=== PATIENT | female | born 1945 | race Caucasian/White ===

== ENCOUNTER 2017-12-23 15:50 | Inpatient (IN) | payer MEDICARE ==
[2017-12-23] MEDS ORDERED: NITROGLYCERIN SL TABS 0.4 MG TAB SUBLINGUAL PRN (16:15)
[2017-12-23] MEDS ORDERED: HEPARIN SODIUM,PORCINE 5,000 UNIT/ML 1 ML VIAL IV ONE (16:15)
[2017-12-23] MEDS ORDERED: ASPIRIN 81 MG PO STA (16:15)
--- NOTE | 2017-12-23 16:15 | ED ---
General Adult HPI - General Chief complaint: Chest Pain Stated complaint: Chest pain Time Seen by Provider: 12/23/17 15:54 Source: patient, EMS, RN notes reviewed, old records reviewed (Reviewed records from [facility] including x-ray report, ER report, EKGs and laboratory data.) Mode of arrival: EMS Limitations: no limitations - History of Present Illness Initial comments: Patient is a pleasant 72-year-old female presenting to the emergency Department with chest discomfort. Patient has been having symptoms for close to a month. Symptoms are exertional. Symptoms improved with rest and are mild at this time. Discomfort was severe today while walking to [facility] for a mammogram. Patient has minimal associated dyspnea. No nausea. Patient does have associated sweating. No history of similar symptoms previously. Case was discussed with transferring physician prior to transfer. There is questionable EKG changes in lead aVF and 3. Troponin was negative. Patient denies any calf pain or leg swelling. Review of Systems ROS Statement: Those systems with pertinent positive or pertinent negative responses have been documented in the HPI. ROS Other: All systems not noted in ROS Statement are negative. Constitutional: Denies: fever Eyes: Denies: eye pain ENT: Denies: ear pain Respiratory: Denies: cough Cardiovascular: Reports: chest pain Endocrine: Denies: fatigue Gastrointestinal: Denies: abdominal pain Genitourinary: Denies: dysuria Musculoskeletal: Denies: back pain Skin: Denies: rash Neurological: Denies: weakness Past Medical History Past Medical History: Diabetes Mellitus, Hyperlipidemia, Hypertension, Rheumatoid Arthritis (RA) Past Surgical History: Hysterectomy Additional Past Surgical History / Comment(s): knee replacement Past Psychological History: No Psychological Hx Reported Smoking Status: Never smoker Past Alcohol Use History: Rare Past Drug Use History: None Reported General Exam Limitations: no limitations General appearance: alert, in no apparent distress Head exam: Present: atraumatic, normocephalic Eye exam: Present: normal appearance, PERRL ENT exam: Present: normal oropharynx Neck exam: Present: normal inspection Respiratory exam: Present: normal lung sounds bilaterally. Absent: chest wall tenderness Cardiovascular Exam: Present: regular rate, normal rhythm Expanded Peripheral pulses: 2+: Radial (R), Radial (L), Posterior Tibialis (R), Posterior Tibialis (L) GI/Abdominal exam: Present: soft. Absent: tenderness Extremities exam: Present: normal inspection. Absent: pedal edema, calf tenderness Neurological exam: Present: alert Psychiatric exam: Present: normal affect, normal mood Skin exam: Present: normal color Course Vital Signs 12/23/17 15:58 Temperature 97.8 F Pulse Rate 73 Respiratory 16 Rate Blood Pressure 162/74 O2 Sat by Pulse 97 Oximetry - Reevaluation(s) Reevaluation #1: 12/23/17 16:13 Case was discussed with Dr. villa, who will admit for Dr. Hogan. EKG Findings - EKG Comments: EKG Findings:: Normal sinus rhythm 78. OH 134. QRS 112. QT 408. QTC 465. Left axis. Incomplete right bundle-branch block. LVH criteria. No acute ST change. Disposition Clinical Impression: Unstable angina pectoris Disposition: ADMITTED IP TO THIS HOSP Is patient prescribed a controlled substance at d/c from ED?: No Referrals: Kassie Hogan MD [Primary Care Provider] - 1-2 days Decision Time: 16:14
[2017-12-23] MEDS: HEPARIN SOD,PORK IN 0.45% NACL 25,000 UNIT in 0.45% NACL 1 500ML.BAG IV SCH (17:12)
[2017-12-23 17:18] LABS: Creatine Kinase MB 1.9 ng/mL (0.0-2.4)
[2017-12-23 17:21] LABS: Troponin I 0.035 ng/mL (0.000-0.034)
[2017-12-23] MEDS: NITROGLYCERIN OINT 1 INCH/GM PACKET TOPICAL SCH ×2 (19:30→23:15)
[2017-12-23 21:03] LABS: Glucose,Whole Blood 152 mg/dL (75-99)
[2017-12-23 22:58] LABS: Creatine Kinase MB 2.2 ng/mL (0.0-2.4); Troponin I 0.03 ng/mL (0.000-0.034)
[2017-12-23] MEDS: HEPARIN SODIUM,PORCINE 5,000 UNIT/ML 1 ML VIAL IV PRN (23:20)
[2017-12-24] MEDS: NITROGLYCERIN OINT 1 INCH/GM PACKET TOPICAL SCH ×4 (05:13→22:47)
[2017-12-24 06:08] LABS: Glucose,Whole Blood 118 mg/dL (75-99)
[2017-12-24 06:47] LABS: Mean Platelet Volume 7.4; Platelet Count 197 k/uL (150-450)
[2017-12-24 07:17] LABS: Cholesterol 170 mg/dL (<200); HDL Cholesterol 79 mg/dL (40-60); LDL Cholesterol,Calculated 75 mg/dL (0-99); Triglycerides 78 mg/dL (<150)
[2017-12-24] MEDS: ASPIRIN 325 MG TAB PO SCH ×2 (09:07→10:47)
--- NOTE | 2017-12-24 09:07 | P.CRDCN ---
History of Present Illness Consult date: 12/24/17 Requesting physician: Marck Delcid Consult reason: chest pain Chief complaint: Chest pain History of present illness: This is a pleasant 72-year-old female with history of hypertension, diabetes, hyperlipidemia, nonsmoker, who presents to the hospital with symptoms of chest discomfort. According to the patient she states she's been getting symptoms off and on for approximately one month. She describes as symptoms as a pressure and heaviness in her chest with associated sharp discomfort as well, she does get associated shortness of breath with diaphoresis. These usually occur with exertion and subside with rest. Yesterday the patient was scheduled to have her routine mammogram [facility], just walking into the hospital she developed moderate to severe chest discomfort. Patient was seen in the emergency room at [facility], and subsequently transferred here. Laboratory data at [facility], white blood cell count 4.9, hemoglobin 12.2, platelet count 203. Sodium 140, potassium 4.0, BUN 26, creatinine 0.7. Magnesium 1.4 alk phos AST ALT normal troponin 0.03. Chest x- ray performed there revealed stable findings without evidence of acute infiltrate or vascular compensation. EKG performed at [facility] showed a normal sinus rhythm with nonspecific ST-T wave changes noted in the inferior leads, incomplete right bundle branch block pattern. EKG performed on arrival here showed a normal sinus rhythm with ST-T wave changes in the inferior leads and incomplete right bundle branch block pattern. Laboratory reviewed here, Troponins 0.035 0.030. Cholesterol 170, triglycerides 78, LDL 75 , HDL 79. Blood pressure 104/60 with a heart rate in the 80s, afebrile. At the time of my examination this morning, patient is currently chest pain-free. Past Medical History Past Medical History: Diabetes Mellitus, Hyperlipidemia, Hypertension, Rheumatoid Arthritis (RA) History of Any Multi-Drug Resistant Organisms: None Reported Past Surgical History: Hysterectomy Additional Past Surgical History / Comment(s): knee replacement Past Anesthesia/Blood Transfusion Reactions: No Reported Reaction Smoking Status: Former smoker - Past Family History Mother Family Medical History: Diabetes Mellitus Brother(s) Family Medical History: Diabetes Mellitus Additional Family Medical History / Comment(s): atrial tachycardia Sister(s) Additional Family Medical History / Comment(s): ventricular tachycardia Medications and Allergies Home Medications Medication Instructions Recorded Confirmed Type Aspirin EC [Ecotrin Low Dose] 81 mg PO HS 12/23/17 12/23/17 History Cholecalciferol [Vitamin D3] 1,000 unit PO DAILY 12/23/17 12/23/17 History Etanercept [Enbrel] 50 mg SQ CARMONA 12/23/17 12/23/17 History Leflunomide [Arava] 20 mg PO DAILY 12/23/17 12/23/17 History Lisinopril [Zestril] 10 mg PO DAILY 12/23/17 12/23/17 History Simvastatin [Zocor] 20 mg PO HS 12/23/17 12/23/17 History metFORMIN HCL 1,000 mg PO BID 12/23/17 12/23/17 History Allergies Allergy/AdvReac Type Severity Reaction Status Date / Time Sulfa (Sulfonamide Allergy Rash/Hives Verified 12/23/17 16:26 Antibiotics) Physical Exam Vitals: Vital Signs Temp Pulse Pulse Resp BP BP Pulse Ox 12/24/17 04:00 97.8 F 82 16 104/57 95 12/24/17 00:00 98.5 F 83 17 89/52 96 12/23/17 19:27 88 18 139/71 96 12/23/17 16:58 98.1 F 82 18 149/73 93 L 12/23/17 15:58 97.8 F 73 16 162/74 97 Intake and Output 12/23/17 12/24/17 12/24/17 22:59 06:59 14:59 Intake Total 582.631 0 Balance 582.631 0 Intake: IV 460 0.9 200 Heparin Sod,Pork in 0.45% 260 NaCl 25,000 unit In 0.45 % NaCl 1 500ml.bag @ 8.9 UNITS/KG/HR 19.94 mls/hr IV .Q24H BARNEY Rx#: [id number] Intake, IV Titration 122.631 Amount Heparin Sod,Pork in 0.45% 122.631 NaCl 25,000 unit In 0.45 % NaCl 1 500ml.bag @ 8.9 UNITS/KG/HR 19.94 mls/hr IV .Q24H BARNEY Rx#: [id number] Oral 0 Other: Voiding Method Toilet # Voids 1 1 Weight 112.037 kg 111.9 kg PHYSICAL EXAMINATION: GENERAL: Pleasant 72-year-old female in no acute distress at the time of my examination HEENT: Head is atraumatic, normocephalic. Pupils equal, round. Sclera anicteric. Conjunctiva are clear. Mucous membranes of the mouth are moist. Neck is supple. There is no elevated jugular venous pressure. No carotid bruit is heard. HEART EXAMINATION: Heart S1, S2 normal. No murmur or gallop heard. CHEST EXAMINATION: Lungs are clear to auscultation and precussion. No chest wall tenderness is noted on palpation or with deep breathing. ABDOMEN: Soft, obese, nontender. Bowel sounds are heard. No organomegaly noted. EXTREMITIES: 2+ peripheral pulses with trace evidence of peripheral edema and no calf tenderness noted. NEUROLOGIC patient is awake, alert and oriented X3. . Results 12/24/17 06:27 Cardiac Enzymes 12/23/17 12/23/17 Range/Units 16:09 22:20 CK-MB (CK-2) 1.9 2.2 (0.0-2.4) ng/mL Troponin I 0.035 H* 0.030 (0.000-0.034) ng/mL Coagulation 12/23/17 12/23/17 12/24/17 Range/Units 16:09 22:20 06:27 APTT 18.9 L 30.4 H 52.2 H (22.0-30.0) sec Lipids 12/24/17 Range/Units 06:27 Triglycerides 78 (<150) mg/dL Cholesterol 170 (<200) mg/dL HDL Cholesterol 79 H (40-60) mg/dL CBC 12/24/17 Range/Units 06:27 Plt Count 197 (150-450) k/uL Current Medications Generic Name Dose Route Start Last Admin Trade Name Freq PRN Reason Stop Dose Admin Aspirin 325 mg 12/24/17 09:00 Aspirin PO DAILY BARNEY Heparin Sodium (Porcine) 0 unit 12/23/17 16:15 12/23/17 23:20 Heparin IV 4,000 unit Q6HR PRN Administration Low PTT Protocol Heparin Sodium/Sodium Chloride 500 mls @ 19.94 mls/hr 12/23/17 16:15 23:21 25,000 unit/ Sodium Chloride IV 11.9 units/kg/hr .Q24H BARNEY 26.66 mls/hr Titration Protocol 8.9 UNITS/KG/HR Nitroglycerin 1 inch 12/23/17 18:00 12/24/17 05:13 Nitro-Bid Oint TOPICAL Not Given Q6HR [facility] Nitroglycerin 0.4 mg 12/23/17 16:15 Nitrostat SUBLINGUAL Q5M PRN Chest Pain Sodium Chloride 10 ml 12/23/17 21:00 12/23/17 22:01 Saline Flush IV Not Given BID BARNEY Intake and Output 12/23/17 12/24/17 12/24/17 22:59 06:59 14:59 Intake Total 582.631 0 Balance 582.631 0 Intake: IV 460 0.9 200 Heparin Sod,Pork in 0.45% 260 NaCl 25,000 unit In 0.45 % NaCl 1 500ml.bag @ 8.9 UNITS/KG/HR 19.94 mls/hr IV .Q24H BARNEY Rx#: [id number] Intake, IV Titration 122.631 Amount Heparin Sod,Pork in 0.45% 122.631 NaCl 25,000 unit In 0.45 % NaCl 1 500ml.bag @ 8.9 UNITS/KG/HR 19.94 mls/hr IV .Q24H BARNEY Rx#: [id number] Oral 0 Other: Voiding Method Toilet # Voids 1 1 Weight 112.037 kg 111.9 kg 12/24/17 06:27 EKG Interpretations (text) EKG shows normal sinus rhythm with incomplete right bundle branch block pattern and nonspecific ST-T wave changes noted in the inferior leads Assessment and Plan Plan: Assessment and plan #1 chest discomfort suggestive of possible acute coronary syndrome. EKG shows normal sinus rhythm with incomplete right bundle branch block pattern and nonspecific ST-T wave changes in the inferior leads. Troponins 0.03, 0.03, 0.03. #2 hypertension #3 hyperlipidemia #4 diabetes #5 obesity #6 rheumatoid arthritis Plan We will obtain a subsequent troponin, echocardiogram with Doppler study is also been requested. We will continue with an aspirin, IV heparin, Nitropaste, we will also initiate the patient on a statin. Pending the results of subsequent troponin and echo. Further recommendations will be made. DNP note has been reviewed, I agree with a documented findings and plan of care. Patient was seen and examined.
[2017-12-24] MEDS: ATORVASTATIN 80 MG TAB PO SCH ×2 (09:26→10:48)
[2017-12-24] MEDS ORDERED: ALPRAZolam 0.25 MG TAB PO PRN (10:40)
[2017-12-24] MEDS ORDERED: NITROGLYCERIN SL TABS 0.4 MG TAB SUBLINGUAL PRN (10:40)
[2017-12-24] MEDS ORDERED: SODIUM CHLORIDE 0.9% 1,000 ML in EMPTY BAG 1 BAG IV ONE (10:40)
[2017-12-24] MEDS ORDERED: ALPRAZolam 0.5 MG TAB PO PRN (10:40)
--- NOTE | 2017-12-24 10:44 | P.PN ---
Progress Note - Text This is an addendum to the dictated cardiology consultation. The patient presents with symptoms of exertional chest discomfort, started about a months ago. She is pain-free at this time and has no rest symptoms. She has no prior documented history of CAD or any cardiac workup. She had minimal elevation of the troponin on her initial sample, there was no acute EKG changes. Her physical examination shows no evidence of fluid overload and she is in sinus mechanism. The patient presents with new onset unstable angina with minimal elevation of the troponin. I will obtain an echocardiogram with Doppler, add beta marsha and statin, proceed with cardiac catheterization to further assess her status and guide her treatment. The risk and the complications and indications were discussed with the patient and her . Thank you for this consult we will follow with you.
[2017-12-24 11:48] LABS: Glucose,Whole Blood 96 mg/dL (75-99)
[2017-12-24] MEDS: METOPROLOL TARTRATE 25 MG TAB PO SCH ×2 (11:58→21:02)
--- NOTE | 2017-12-24 14:13 | P.HPIM ---
History of Present Illness 72-year-old the female came in with compensative chest chart chest pain which as of breath and diaphoresis denied any pleurisy not associated with food patient has minimally elevated troponins of 0.03 cardiology evaluated the patient patient has nonspecific ST-T wave changes they believe patient has non- ST elevation microinfarction the recommending cardiac catheterization on Tuesday. Patient is presently on IV heparin patient has sinus last and chest pain nonexertional. Review of Systems REVIEW OF SYSTEMS: CONSTITUTIONAL: No fever, no malaise, no fatigue. HEENT: No recent visual problems or hearing problems. Denied any sore throat. CARDIOVASCULAR: No orthopnea, PND, no palpitations, no syncope. PULMONARY: No shortness of breath, no cough, no hemoptysis. GASTROINTESTINAL: No diarrhea, no nausea, no vomiting, no abdominal pain. Normoactive bowel sounds. NEUROLOGICAL: No headaches, no weakness, no numbness. HEMATOLOGICAL: Denies any bleeding or petechiae. GENITOURINARY: Denies any burning micturition, frequency, or urgency. MUSCULOSKELETAL/RHEUMATOLOGICAL: Denies any joint pain, swelling, or any muscle pain. ENDOCRINE: Denies any polyuria or polydipsia. The rest of the 14-point review of systems is negative. Past Medical History Past Medical History: Diabetes Mellitus, Hyperlipidemia, Hypertension, Rheumatoid Arthritis (RA) History of Any Multi-Drug Resistant Organisms: None Reported Past Surgical History: Hysterectomy Additional Past Surgical History / Comment(s): knee replacement Past Anesthesia/Blood Transfusion Reactions: No Reported Reaction Smoking Status: Former smoker - Past Family History Mother Family Medical History: Diabetes Mellitus Brother(s) Family Medical History: Diabetes Mellitus Additional Family Medical History / Comment(s): atrial tachycardia Sister(s) Additional Family Medical History / Comment(s): ventricular tachycardia Medications and Allergies Home Medications Medication Instructions Recorded Confirmed Type Aspirin EC [Ecotrin Low Dose] 81 mg PO HS 12/23/17 12/23/17 History Cholecalciferol [Vitamin D3] 1,000 unit PO DAILY 12/23/17 12/23/17 History Etanercept [Enbrel] 50 mg SQ CARMONA 12/23/17 12/23/17 History Leflunomide [Arava] 20 mg PO DAILY 12/23/17 12/23/17 History Lisinopril [Zestril] 10 mg PO DAILY 12/23/17 12/23/17 History Simvastatin [Zocor] 20 mg PO HS 12/23/17 12/23/17 History metFORMIN HCL 1,000 mg PO BID 12/23/17 12/23/17 History Allergies Allergy/AdvReac Type Severity Reaction Status Date / Time Sulfa (Sulfonamide Allergy Rash/Hives Verified 12/23/17 16:26 Antibiotics) Physical Exam Vitals: Vital Signs Temp Pulse Pulse Resp BP BP Pulse Ox 12/24/17 11:55 97.6 F 79 16 127/69 96 12/24/17 09:50 96 12/24/17 09:00 82 16 12/24/17 04:00 97.8 F 82 16 104/57 95 12/24/17 00:00 98.5 F 83 17 89/52 96 12/23/17 19:27 88 18 139/71 96 12/23/17 16:58 98.1 F 82 18 149/73 93 L 12/23/17 15:58 97.8 F 73 16 162/74 97 Intake and Output 12/23/17 12/24/17 12/24/17 22:59 06:59 14:59 Intake Total 582.631 601.268 Balance 582.631 601.268 Intake: IV 460 100 0.9 200 100 Heparin Sod,Pork in 0.45% 260 NaCl 25,000 unit In 0.45 % NaCl 1 500ml.bag @ 8.9 UNITS/KG/HR 19.94 mls/hr IV .Q24H BARNEY Rx#: [id number] Intake, IV Titration 122.631 261.268 Amount Heparin Sod,Pork in 0.45% 122.631 261.268 NaCl 25,000 unit In 0.45 % NaCl 1 500ml.bag @ 8.9 UNITS/KG/HR 19.94 mls/hr IV .Q24H BARNEY Rx#: [id number] Oral 240 Other: Voiding Method Toilet Toilet # Voids 1 1 1 Weight 112.037 kg 111.9 kg PHYSICAL EXAMINATION: GENERAL: The patient is alert and oriented x3, not in any acute distress. Well developed, well nourished. HEENT: Pupils are round and equally reacting to light. EOMI. No scleral icterus. No conjunctival pallor. Normocephalic, atraumatic. No pharyngeal erythema. No thyromegaly. CARDIOVASCULAR: S1 and S2 present. No murmurs, rubs, or gallops. PULMONARY: Chest is clear to auscultation, no wheezing or crackles. ABDOMEN: Soft, nontender, nondistended, normoactive bowel sounds. No palpable organomegaly. MUSCULOSKELETAL: No joint swelling or deformity. EXTREMITIES: No cyanosis, clubbing, or pedal edema. NEUROLOGICAL: Gross neurological examination did not reveal any focal deficits. SKIN: No rashes. Results CBC & Chem 7: 12/24/17 06:27 Labs: Abnormal Lab Results - Last 24 Hours (Table) 12/23/17 12/23/17 12/23/17 Range/Units 16:09 16:09 20:57 APTT 18.9 L (22.0-30.0) sec POC Glucose (mg/dL) 152 H (75-99) mg/dL Troponin I 0.035 H* (0.000-0.034) ng/mL HDL Cholesterol (40-60) mg/dL 12/23/17 12/24/17 12/24/17 Range/Units 22:20 06:06 06:27 APTT 30.4 H 52.2 H (22.0-30.0) sec POC Glucose (mg/dL) 118 H (75-99) mg/dL Troponin I (0.000-0.034) ng/mL HDL Cholesterol (40-60) mg/dL 12/24/17 Range/Units 06:27 APTT (22.0-30.0) sec POC Glucose (mg/dL) (75-99) mg/dL Troponin I (0.000-0.034) ng/mL HDL Cholesterol 79 H (40-60) mg/dL Thrombosis Risk Factor Assmnt - Choose All That Apply Any of the Below Risk Factors Present?: Yes Each Factor Represents 1 point: Obesity (BMI >25) Other Risk Factors: Yes Each Risk Factor Represents 2 Points: Age 61-74 years Thrombosis Risk Factor Assessment Total Risk Factor Score: 3 Thrombosis Risk Factor Assessment Level: Moderate Risk Assessment and Plan Plan: -Chest discomfort possible non-ST elevation microinfarction, patient is on beta marsha patient is on aspirin IV heparin. Patient will undergo cardiac catheterization on Tuesday -Hypertension hold off on lisinopril with concerns of hypotension patient blood pressure is on the low normal side can continue with metoprolol -Hyperlipidemia -Type 2 diabetes mellitus for left metformin patient may sliding scale insulin -Rheumatoid arthritis patient is on biologic agents which will be continued -Wasting
[2017-12-24] MEDS: HEPARIN SOD,PORK IN 0.45% NACL 25,000 UNIT in 0.45% NACL 1 500ML.BAG IV SCH (14:39)
--- NOTE | 2017-12-24 16:24 | ECHOF ---
Referral Reason:chest pain MEASUREMENTS -------- HEIGHT: 165.1 cm WEIGHT: 111.6 kg BP: RVIDd: 2.8 cm (< 3.3) IVSd: 1.2 cm (0.6 - 1.1) LVIDd: 4.2 cm (3.9 - 5.3) LVPWd: 1.4 cm (0.6 - 1.1) IVSs: 1.5 cm LVIDs: 3.4 cm LVPWs: 1.4 cm LAESV Index (A-L): 30.27 ml/m Ao Diam: 3.7 cm (2.0 - 3.7) AV Cusp: 2.0 cm (1.5 - 2.6) LA Diam: 3.0 cm (2.7 - 3.8) MV EXCURSION: 16.009 mm (> 18.000) MV EF SLOPE: 68 mm/s (70 - 150) EPSS: 0.8 cm MV E Samuel: 0.65 m/s MV DecT: 295 ms MV A Samuel: 0.99 m/s MV E/A Ratio: 0.66 RAP: 5.00 mmHg RVSP: 30.62 mmHg FINDINGS -------- Sinus rhythm. This was a technically adequate study. The left ventricular size is normal. There is mild concentric left ventricular hypertrophy. Overa ll left ventricular systolic function is normal with, an EF between 55 - 60 %. The right ventricle is normal in size. LA is midly dilated 29-33ml/m2. The right atrial size is normal. The aortic valve is trileaflet, and appears structurally normal. No aortic stenosis or regurgitation. Moderate mitral annular calcification present. Mild mitral regurgitation is present. Mild tricuspid regurgitation present. There is no evidence of pulmonary hypertension. The right v entricular systolic pressure, as measured by Doppler, is 30.62mmHg. The pulmonic valve was not well visualized. There is no pulmonic regurgitation present. The aortic root size is normal. There is no pericardial effusion. CONCLUSIONS -------- 1. Sinus rhythm. 2. The left ventricular size is normal. 3. There is mild concentric left ventricular hypertrophy. 4. Overall left ventricular systolic function is normal with, an EF between 55 - 60 %. 5. LA is midly dilated 29-33ml/m2. 6. The aortic valve is trileaflet, and appears structurally normal. No aortic stenosis or regurgitati on. 7. Moderate mitral annular calcification present. 8. Mild mitral regurgitation is present. 9. Mild tricuspid regurgitation present. 10. There is no evidence of pulmonary hypertension. 11. The pulmonic valve was not well visualized. 12. There is no pulmonic regurgitation present. 13. The aortic root size is normal. 14. There is no pericardial effusion. SURGICAL ASSISTANT CERTIFIED: Keesha Yan RDCS
[2017-12-24 17:00] LABS: Glucose,Whole Blood 100 mg/dL (75-99)
[2017-12-24] MEDS: INSULIN ASPART 100 UNIT/ML 1 ML 10 ML VIAL SQ SCH ×2 (17:01→21:01)
[2017-12-24 20:54] LABS: Glucose,Whole Blood 114 mg/dL (75-99)
[2017-12-25 06:09] LABS: Glucose,Whole Blood 101 mg/dL (75-99)
[2017-12-25] MEDS: INSULIN ASPART 100 UNIT/ML 1 ML 10 ML VIAL SQ SCH ×4 (06:10→21:41)
[2017-12-25] MEDS: NITROGLYCERIN OINT 1 INCH/GM PACKET TOPICAL SCH ×3 (06:11→17:18)
[2017-12-25 07:05] LABS: Mean Platelet Volume 7.5; Platelet Count 196 k/uL (150-450)
[2017-12-25 07:14] LABS: Anion Gap 5 mmol/L; Blood Urea Nitrogen 17 mg/dL (7-17); Calcium 9.3 mg/dL (8.4-10.2); Carbon Dioxide 21 mmol/L (22-30); Chloride 115 mmol/L (98-107); Glucose 102 mg/dL (74-99); Potassium 4.2 mmol/L (3.5-5.1); Sodium 141 mmol/L (137-145)
[2017-12-25] MEDS: ATORVASTATIN 80 MG TAB PO SCH (07:41)
[2017-12-25] MEDS: LEFLUNOMIDE 20 MG TAB PO SCH (07:41)
[2017-12-25] MEDS: ASPIRIN 325 MG TAB PO SCH (07:41)
[2017-12-25] MEDS: METOPROLOL TARTRATE 25 MG TAB PO SCH ×2 (07:41→20:09)
[2017-12-25] MEDS: HEPARIN SODIUM,PORCINE 5,000 UNIT/ML 1 ML VIAL IV PRN (07:44)
[2017-12-25] MEDS: HEPARIN SOD,PORK IN 0.45% NACL 25,000 UNIT in 0.45% NACL 1 500ML.BAG IV SCH (09:03)
[2017-12-25 12:16] LABS: Glucose,Whole Blood 101 mg/dL (75-99)
--- NOTE | 2017-12-25 12:53 | P.PN ---
Subjective Patient is admitted for non-ST elevation myocardial infarction. No overnight events. Constitutional: Denied any fatigue denied any fever. Cardio vascular: denied any chest pain, palpitations Gastrointestinal denied any nausea vomiting Pulmonary: Denied any shortness of breath cough Neurologic denied any new focal deficits Objective - Vital Signs Vital signs: Vital Signs Temp 98.8 F 12/25/17 11:01 Pulse 72 12/25/17 11:01 Resp 16 12/25/17 11:01 BP 139/76 12/25/17 11:01 Pulse Ox 95 12/25/17 11:01 Intake & Output 12/24/17 12/25/17 12/25/17 18:59 06:59 18:59 Intake Total 717.628 146 0491.000 Balance 717.140 623 0174.000 Weight 112.7 kg Intake: IV 100 257 40 0.9 100 70 40 Heparin Sod,Pork in 0.45% 187 NaCl 25,000 unit In 0.45 % NaCl 1 500ml.bag @ 8.9 UNITS/KG/HR 19.94 mls/hr IV .Q24H BARNEY Rx#: [id number] Intake, IV Titration 377.369 500.000 Amount Heparin Sod,Pork in 0.45% 377.369 500.000 NaCl 25,000 unit In 0.45 % NaCl 1 500ml.bag @ 8.9 UNITS/KG/HR 19.94 mls/hr IV .Q24H BARNEY Rx#: [id number] Oral 240 340 880 Other: Voiding Method Toilet Toilet Toilet # Voids 1 1 1 - Exam PHYSICAL EXAMINATION: GENERAL: The patient is alert and oriented x3, not in any acute distress. Well developed, well nourished. HEENT: Pupils are round and equally reacting to light. EOMI. No scleral icterus. No conjunctival pallor. Normocephalic, atraumatic. No pharyngeal erythema. No thyromegaly. CARDIOVASCULAR: S1 and S2 present. No murmurs, rubs, or gallops. PULMONARY: Chest is clear to auscultation, no wheezing or crackles. ABDOMEN: Soft, nontender, nondistended, normoactive bowel sounds. No palpable organomegaly. MUSCULOSKELETAL: No joint swelling or deformity. EXTREMITIES: No cyanosis, clubbing, or pedal edema. NEUROLOGICAL: Gross neurological examination did not reveal any focal deficits. SKIN: No rashes. - Labs CBC & Chem 7: 12/25/17 06:29 12/25/17 06:29 Labs: Abnormal Lab Results - Last 24 Hours (Table) 12/24/17 12/24/17 12/25/17 Range/Units 16:56 20:48 06:02 APTT (22.0-30.0) sec Chloride (98-107) mmol/L Carbon Dioxide (22-30) mmol/L Glucose (74-99) mg/dL POC Glucose (mg/dL) 100 H 114 H 101 H (75-99) mg/dL 12/25/17 12/25/17 12/25/17 Range/Units 06:29 06:29 11:53 APTT 39.6 H (22.0-30.0) sec Chloride 115 H (98-107) mmol/L Carbon Dioxide 21 L (22-30) mmol/L Glucose 102 H (74-99) mg/dL POC Glucose (mg/dL) 101 H (75-99) mg/dL Assessment and Plan Plan: -Chest discomfort possible non-ST elevation microinfarction, patient is on beta marsha patient is on aspirin IV heparin. Patient will undergo cardiac catheterization on Tuesday -Hypertension hold off on lisinopril with concerns of hypotension patient blood pressure is on the low normal side can continue with metoprolol -Hyperlipidemia -Type 2 diabetes mellitus for left metformin patient may sliding scale insulin -Rheumatoid arthritis patient is on biologic agents which will be continued
--- NOTE | 2017-12-25 13:55 | PN ---
PROGRESS NOTE Mrs. Colby is a 72-year-old female with a history of hyperlipidemia and diabetes and hypertension, who presented with symptoms of unstable angina. She had mild discomfort today walking to the bathroom. Otherwise, she is feeling well. She has no dizziness. No palpitation. No syncope. She continues to be on aspirin once a day, Lipitor 80 mg daily, IV heparin, metoprolol tartrate 25 mg twice a day, nitro paste. PHYSICAL EXAMINATION: Blood pressure 139/70 with a heart rate in 70s. LUNGS: Clear. HEART: Regular rate and rhythm S1, S2. No S3. No rub. ABDOMEN: Soft nontender. EXTREMITIES: No edema. LAB DATA: BUN and creatinine 17 and 0.72, potassium 4.2. IMPRESSION: 1. Unstable angina. 2. Hypertension. 3. Hyperlipidemia. 4. Diabetes mellitus. RECOMMENDATION: Patient echocardiogram revealed a preserved left ventricular size and systolic function with mild mitral and tricuspid regurgitation. She will undergo a cardiac catheterization tomorrow and depending on results of testing, further recommendations will be made. MMRIYAL / DEBBIEN: [id number] /
[2017-12-25] MEDS ORDERED: NON-FORMULARY DRUG (Etanercept [Enbrel] 50 MG) SQ SCH (14:00)
[2017-12-25 16:44] LABS: Glucose,Whole Blood 95 mg/dL (75-99)
[2017-12-25 20:56] LABS: Glucose,Whole Blood 95 mg/dL (75-99)
[2017-12-26] MEDS: HEPARIN SOD,PORK IN 0.45% NACL 25,000 UNIT in 0.45% NACL 1 500ML.BAG IV SCH (01:24)
[2017-12-26] MEDS ORDERED: ATORVASTATIN 80 MG TAB PO ONE (06:00)
[2017-12-26] MEDS ORDERED: ASPIRIN 325 MG TAB PO ONE (06:00)
[2017-12-26 06:18] LABS: Glucose,Whole Blood 107 mg/dL (75-99)
[2017-12-26 06:52] LABS: Basophils % (A) 1 %; Eosinophils # (A) 0.2 k/uL (0-0.7); Eosinophils % (A) 5 %; HCT 33.6 % (34.0-46.0); HGB 10.4 gm/dL (11.4-16.0); Lymphocytes # (A) 1.3 k/uL (1.0-4.8); Lymphocytes % (A) 30 %; MCHC 30.8 g/dL (31.0-37.0); MCV 87.6 fL (80.0-100.0); Mean Platelet Volume 7.3; Monocytes # (A) 0.4 k/uL (0-1.0); Monocytes % (A) 9 %; Neutrophils # (A) 2.2 k/uL (1.3-7.7); Neutrophils % (A) 53 %; Platelet Count 184 k/uL (150-450); RBC 3.84 m/uL (3.80-5.40); RDW 13.8 % (11.5-15.5); WBC 4.2 k/uL (3.8-10.6)
[2017-12-26] MEDS: LEFLUNOMIDE 20 MG TAB PO SCH (06:56)
[2017-12-26] MEDS: NITROGLYCERIN OINT 1 INCH/GM PACKET TOPICAL SCH ×2 (06:56)
[2017-12-26] MEDS: METOPROLOL TARTRATE 25 MG TAB PO SCH ×2 (06:57→19:28)
[2017-12-26] MEDS: INSULIN ASPART 100 UNIT/ML 1 ML 10 ML VIAL SQ SCH ×4 (06:59→21:37)
[2017-12-26 07:15] LABS: Anion Gap 4 mmol/L; Blood Urea Nitrogen 16 mg/dL (7-17); Calcium 9.1 mg/dL (8.4-10.2); Carbon Dioxide 25 mmol/L (22-30); Chloride 113 mmol/L (98-107); Glucose 103 mg/dL (74-99); Potassium 3.8 mmol/L (3.5-5.1); Sodium 142 mmol/L (137-145)
[2017-12-26] MEDS ORDERED: SODIUM CHLORIDE 0.9% 1,000 ML IV ONE (07:50)
[2017-12-26] MEDS ORDERED: fentaNYL (PF) 50 MCG/ML 2 ML AMP IVP ONE (08:07)
[2017-12-26] MEDS ORDERED: LIDOCAINE 2% INJ 20 MG/ML SQ ONE (08:11)
[2017-12-26] MEDS ORDERED: VERAPAMIL SYRINGE (5 MG/10 ML) INTRAARTER ONE (08:14)
[2017-12-26] MEDS ORDERED: BIVALIRUDIN 250 MG in SODIUM CHLORIDE 0.9% 50 ML IV ONE (08:26)
[2017-12-26] MEDS ORDERED: BIVALIRUDIN BOLUS 250 MG/50 ML IV ONE (08:26)
[2017-12-26] MEDS ORDERED: PRASUGREL 10 MG TAB PO ONE (08:28)
[2017-12-26] MEDS ORDERED: IOPAMIDOL-370 125ML BTL INJ ONE (08:35)
[2017-12-26] MEDS ORDERED: IOPAMIDOL-370 100ML BTL INJ ONE (08:53)
[2017-12-26] MEDS ORDERED: RX INFO: IV CONTRAST WAS GIVEN 1 EACH MISC MISCELLANE PRN (09:08)
[2017-12-26] MEDS ORDERED: MAG HYDROX/AL HYDROX/SIMETH 30 ML CUP PO PRN (09:08)
[2017-12-26] MEDS ORDERED: NITROGLYCERIN SL TABS 0.4 MG TAB SUBLINGUAL PRN (09:08)
[2017-12-26] MEDS ORDERED: ATROPINE SULFATE 0.1 MG/ML 10ML SYRINGE IV PRN (09:08)
[2017-12-26] MEDS ORDERED: ZOLPIDEM 5 MG TAB PO PRN (09:08)
[2017-12-26] MEDS ORDERED: SODIUM CHLORIDE 0.9% 1,000 ML IV SCH (09:15)
--- NOTE | 2017-12-26 10:14 | CC ---
CARDIAC CATHETERIZATION REPORT Mrs. Colby is a 72-year-old female with no prior documented history of coronary artery disease who presented with symptoms of progressive exertional chest discomfort. She had minimal elevation of her troponin. Because of her history and her presentation, recommendation was made regarding cardiac catheterization. The procedure as well as risks and the complications were discussed with the patient who is in full understanding and agreement. PROCEDURE: Patient was brought to the label printing machinist in a fasting semi-sedated state after receiving fentanyl and Benadryl and achieving moderate conscious sedated state. Using Xylocaine anesthesia in the Seldinger technique, a 6-Pakistani sheath was introduced in the right radial artery. Selective right and left coronary angiography performed using 5-Pakistani 3.5 bend right and left Efrain catheter. Multiple views of the coronary artery including hemiaxial views were obtained. Following that, angioplasty and stenting was performed. Following that, 5-Pakistani tight pigtail catheter was introduced in the left ventricle and a 30-degree JUÁREZ view of the left ventricle was obtained. Following that, the catheter and sheaths were removed. Hemostasis was obtained with deployment of a TR band. There was no immediate complication. Patient is returned to her room in stable condition. FINDINGS: FLUOROSCOPY: There was calcification involving the right coronary artery and the mitral annulus. LEFT MAIN: This is a large-sized vessel bifurcating left circumflex, left anterior descending artery. Left main coronary artery has no evidence of obstructive coronary disease. LEFT ANTERIOR DESCENDING ARTERY: This is a large-sized vessel giving rise to a large diagonal branch proximally. Prior to the diagonal branch takeoff, there is a long tubular lesion of 95% with slow flow in the LAD. LEFT CIRCUMFLEX: This is a nondominant vessel giving rise to a very proximal obtuse marginal branch. The second obtuse marginal branch, the largest. The left circumflex and its branches have no evidence of obstructive coronary artery disease. RIGHT CORONARY ARTERY: This is a large dominant vessel bifurcating distally PDA and posterolateral segment and branches. The right coronary artery mid segment has a 50% to 60% stenosis. The rest of the vessel has no high-grade stenosis. LEFT VENTRICULOGRAM: Left ventriculogram is performed 30-degree JUÁREZ view and revealed a normal left ventricular size and systolic function. There was arrhythmia induced mitral regurgitation. HEMODYNAMICS: There was no gradient across the aortic valve. The left ventricle end- diastolic pressure was 20 to 24 mmHg. CONCLUSION: 1. Calcified coronary arteries and calcified mitral annulus. 2. Severe stenosis in the proximal left anterior descending artery. 3. Moderate disease in the mid right coronary artery. RECOMMENDATION: In view of finding anatomy, I recommend proceeding with angioplasty and stenting of the LAD. The procedure, risks and complications were discussed with the patient who is in full understanding and agreement. MMSCOTT / DEBBIEN: [id number] /
--- NOTE | 2017-12-26 10:44 | PTCA ---
PERCUTANEOUSTRANS CORORONARY ANGIOGRAPHY Mrs. Colby is 72-year-old female who presented with symptoms of unstable angina and minimal elevation of troponin, underwent cardiac catheterization, was found to have critical stenosis involving the proximal LAD. Recommendation was made regarding angioplasty and stenting. The procedure as well as the risks and the complications were discussed with the patient who is in full understanding and agreement. PROCEDURE: A 6-Faroese EBU 3.75 guiding catheter introduced in the system. After cannulating the left main, a 0.014 balanced medium weight J-wire was advanced across the lesion positioned distally then a 3.5 x 23 mm Xience Alpine stent was deployed post dilated at 16 atmospheres. Following that, the balloon was removed and a 4.0 x 50 mm NC Euphora balloon was advanced and 2 inflations at 12 atmospheres was done. After the last inflation, after appropriate wait, the balloon and the guidewire were withdrawn back in the guiding catheter. Images were obtained, repeated. Those images reveal stable successful stenting. At that point, the guiding catheter, the balloon and the guidewire were removed and left ventriculogram was performed. Following that, catheter and sheaths were removed. Hemostasis was obtained with deployment of a TR band. There was no immediate complication. Patient was returned to her room in stable condition. Of note, the patient received Angiomax per protocol as well as oral loading dose of Effient. She had chest discomfort and mild EKG changes with inflation that resolved at the end of the procedure. RESULTS: Successful stenting of the proximal left anterior descending artery with reduction in stenosis from 95% to 0%. RECOMMENDATION: The patient will be continued on aspirin, Effient, beta marsha, and statin. The importance of dual antiplatelet treatment were discussed with the patient and her family and are in full understanding and agreement. Duration procedure is 43 minutes. MMODL / IJN: [id number] /
[2017-12-26 12:01] LABS: Glucose,Whole Blood 119 mg/dL (75-99)
[2017-12-26 13:44] VITALS: BMI 39.9
--- NOTE | 2017-12-26 14:03 | P.PN ---
Subjective Patient is admitted for non-ST elevation myocardial infarction. Patient underwent stenting of LAD. Clinically doing well. No overnight events. Constitutional: Denied any fatigue denied any fever. Cardio vascular: denied any chest pain, palpitations Gastrointestinal denied any nausea vomiting Pulmonary: Denied any shortness of breath cough Neurologic denied any new focal deficits Objective - Vital Signs Vital signs: Vital Signs Temp 97.2 F L 12/26/17 09:15 Pulse 68 12/26/17 09:23 Resp 17 12/26/17 06:00 BP 124/71 12/26/17 09:23 Pulse Ox 94 L 12/26/17 09:15 Intake & Output 12/25/17 12/26/17 12/26/17 18:59 06:59 18:59 Intake Total 1420.000 950 356.4 Output Total 1000 Balance 420.000 950 356.4 Weight 112.2 kg 112.2 kg Intake: IV 40 220 134.4 0.9 40 220 Intake, IV Titration 500.000 500 Amount Heparin Sod,Pork in 0.45% 500.000 500 NaCl 25,000 unit In 0.45 % NaCl 1 500ml.bag @ 8.9 UNITS/KG/HR 19.94 mls/hr IV .Q24H [facility] Rx#: [id number] Oral 880 230 222 Output: Urine 1000 Other: Voiding Method Toilet Toilet # Voids 1 2 1 - Exam PHYSICAL EXAMINATION: GENERAL: The patient is alert and oriented x3, not in any acute distress. Well developed, well nourished. HEENT: Pupils are round and equally reacting to light. EOMI. No scleral icterus. No conjunctival pallor. Normocephalic, atraumatic. No pharyngeal erythema. No thyromegaly. CARDIOVASCULAR: S1 and S2 present. No murmurs, rubs, or gallops. PULMONARY: Chest is clear to auscultation, no wheezing or crackles. ABDOMEN: Soft, nontender, nondistended, normoactive bowel sounds. No palpable organomegaly. MUSCULOSKELETAL: No joint swelling or deformity. EXTREMITIES: No cyanosis, clubbing, or pedal edema. NEUROLOGICAL: Gross neurological examination did not reveal any focal deficits. SKIN: No rashes. - Labs CBC & Chem 7: 12/26/17 05:47 12/26/17 05:47 Labs: Abnormal Lab Results - Last 24 Hours (Table) 12/25/17 12/26/17 12/26/17 Range/Units 13:53 05:47 05:47 Hgb 10.4 L (11.4-16.0) gm/dL Hct 33.6 L (34.0-46.0) % MCHC 30.8 L (31.0-37.0) g/dL APTT 62.5 H 64.5 H (22.0-30.0) sec Chloride (98-107) mmol/L Glucose (74-99) mg/dL POC Glucose (mg/dL) (75-99) mg/dL 12/26/17 12/26/17 12/26/17 Range/Units 05:47 06:13 11:55 Hgb (11.4-16.0) gm/dL Hct (34.0-46.0) % MCHC (31.0-37.0) g/dL APTT (22.0-30.0) sec Chloride 113 H (98-107) mmol/L Glucose 103 H (74-99) mg/dL POC Glucose (mg/dL) 107 H 119 H (75-99) mg/dL Assessment and Plan Plan: -Chest discomfort possible non-ST elevation myocardial infarction, status post cardiac catheterization and stenting of LAD, patient is on beta marsha dual antiplatelet therapy, statin and lisinopril. -Hypertension continue lisinopril beta marsha. -Hyperlipidemia -Type 2 diabetes mellitus for left metformin patient is on sliding scale insulin -Rheumatoid arthritis patient is on biologic agents which will be continued
[2017-12-26 16:54] LABS: Glucose,Whole Blood 124 mg/dL (75-99)
[2017-12-26] MEDS: LISINOPRIL 5 MG TAB PO SCH (19:31)
[2017-12-26 21:21] LABS: Glucose,Whole Blood 100 mg/dL (75-99)
[2017-12-27 01:34] LABS: Basophils % (A) 1 %; Eosinophils # (A) 0.2 k/uL (0-0.7); Eosinophils % (A) 5 %; HCT 32.6 % (34.0-46.0); HGB 10.3 gm/dL (11.4-16.0); Lymphocytes # (A) 1.4 k/uL (1.0-4.8); Lymphocytes % (A) 28 %; MCH 27.6 pg (25.0-35.0); MCHC 31.6 g/dL (31.0-37.0); MCV 87.4 fL (80.0-100.0); Mean Platelet Volume 7.8; Monocytes # (A) 0.4 k/uL (0-1.0); Monocytes % (A) 7 %; Neutrophils # (A) 2.8 k/uL (1.3-7.7); Neutrophils % (A) 57 %; Platelet Count 177 k/uL (150-450); RBC 3.73 m/uL (3.80-5.40); RDW 13.9 % (11.5-15.5); WBC 4.9 k/uL (3.8-10.6)
[2017-12-27 01:36] LABS: Anion Gap 5 mmol/L; Blood Urea Nitrogen 18 mg/dL (7-17); Calcium 8.9 mg/dL (8.4-10.2); Carbon Dioxide 23 mmol/L (22-30); Chloride 113 mmol/L (98-107); Glucose 91 mg/dL (74-99); Magnesium 1.9 mg/dL (1.6-2.3); Potassium 3.9 mmol/L (3.5-5.1); Sodium 141 mmol/L (137-145)
[2017-12-27 05:47] LABS: Glucose,Whole Blood 97 mg/dL (75-99)
[2017-12-27] MEDS: INSULIN ASPART 100 UNIT/ML 1 ML 10 ML VIAL SQ SCH (06:00)
[2017-12-27 06:07] LABS: Anion Gap 5 mmol/L; Blood Urea Nitrogen 16 mg/dL (7-17); Calcium 9.3 mg/dL (8.4-10.2); Carbon Dioxide 25 mmol/L (22-30); Chloride 112 mmol/L (98-107); Glucose 95 mg/dL (74-99); Potassium 3.9 mmol/L (3.5-5.1); Sodium 142 mmol/L (137-145)
[2017-12-27] MEDS: ATORVASTATIN 80 MG TAB PO SCH (08:45)
[2017-12-27] MEDS: LEFLUNOMIDE 20 MG TAB PO SCH (08:45)
[2017-12-27] MEDS: METOPROLOL TARTRATE 25 MG TAB PO SCH (08:46)
[2017-12-27] MEDS: LISINOPRIL 5 MG TAB PO SCH (08:46)
[2017-12-27 08:49] VITALS: BP 144/73; PULSE 80; RESP 18; TEMP 97
[2017-12-27] MEDS ORDERED: PRASUGREL 10 MG TAB PO SCH (09:00)
[2017-12-27] MEDS ORDERED: ASPIRIN 81 MG PO SCH (09:00)
--- NOTE | 2017-12-27 11:28 | PN ---
PROGRESS NOTE Mrs. Colby is a 72-year-old female with known history of hypertension, hyperlipidemia, diabetes mellitus, who presented with unstable angina, non ST-segment elevation myocardial infarction. She underwent cardiac catheterization and stenting of her proximal LAD. She is doing well this morning. Her breathing is stable. She is ambulating without difficulty. She denies any dizziness or palpitation. She continued to be on aspirin once a day, Effient 10 mg daily, lisinopril 10 mg daily, metoprolol tartrate 25 mg twice a day, Lipitor 80 mg daily. PHYSICAL EXAMINATION: Blood pressure 140/70 with the heart rate in the 80s. LUNGS: Clear. HEART: Regular rate and rhythm, S1, S2. No S3. No rub. ABDOMEN: Soft, nontender. EXTREMITIES: No edema. Right radial pulse is intact. EKG revealed no acute changes. IMPRESSION: 1. Status post stenting of the left anterior descending artery with non ST-segment elevation myocardial infarction. 2. Hypertension. 3. Hyperlipidemia. 4. Diabetes mellitus. RECOMMENDATION: Patient should be able to be discharged home today and follow up in 1 week. She will resume her metformin in 48 hours. MMODL / IJN: [id number] /
[2017-12-27 11:29] LABS: Glucose,Whole Blood 103 mg/dL (75-99)
--- NOTE | 2017-12-27 12:18 | P.DS ---
Providers Date of admission: 12/24/17 13:02 Attending physician: Marck Delcid MD Consults: 12/23/17 16:15 Consult Physician Urgent Consulting Provider: Odilon Soares Consult Reason/Comments: ua Do you want consulting provider notified?: Yes 12/26/17 09:08 Consult Physician Routine Consulting Provider: [facility] Consult Reason/Comments: Post Interventional patient Do you want consulting provider notified?: Already Contacted Primary care physician: Kassie [facility] Hospital Course: Patient is admitted for non-ST elevation myocardial infarction. Patient underwent stenting of LAD. Clinically doing well. Had normal ejection fraction PHYSICAL EXAMINATION: GENERAL: The patient is alert and oriented x3, not in any acute distress. Well developed, well nourished. HEENT: Pupils are round and equally reacting to light. EOMI. No scleral icterus. No conjunctival pallor. Normocephalic, atraumatic. No pharyngeal erythema. No thyromegaly. CARDIOVASCULAR: S1 and S2 present. No murmurs, rubs, or gallops. PULMONARY: Chest is clear to auscultation, no wheezing or crackles. ABDOMEN: Soft, nontender, nondistended, normoactive bowel sounds. No palpable organomegaly. MUSCULOSKELETAL: No joint swelling or deformity. EXTREMITIES: No cyanosis, clubbing, or pedal edema. NEUROLOGICAL: Gross neurological examination did not reveal any focal deficits. SKIN: No rashes. Assessment and Plan Plan: -Chest discomfort possible non-ST elevation myocardial infarction, status post cardiac catheterization and stenting of LAD, patient is on beta marsha dual antiplatelet therapy, statin and lisinopril. -Hypertension continue lisinopril beta marsha. -Hyperlipidemia -Type 2 diabetes mellitus patient will be resumed on metformin -Rheumatoid arthritis patient is on biologic agents which will be continued Plan - Discharge Summary New Discharge Prescriptions: New Atorvastatin [Lipitor] 80 mg PO DAILY #80 tab Metoprolol Tartrate [Lopressor] 25 mg PO BID #180 tab Nitroglycerin Sl Tabs [Nitrostat] 0.4 mg SUBLINGUAL Q5M PRN #25 tab PRN Reason: Chest Pain Prasugrel [Effient] 10 mg PO DAILY #90 tab Continue metFORMIN HCL 1,000 mg PO BID Leflunomide [Arava] 20 mg PO DAILY Cholecalciferol [Vitamin D3] 1,000 unit PO DAILY Aspirin EC [Ecotrin Low Dose] 81 mg PO HS Lisinopril [Zestril] 10 mg PO DAILY #90 tab Discontinued Simvastatin [Zocor] 20 mg PO HS No Action Etanercept [Enbrel] 50 mg SQ CARMONA Discharge Medication List Aspirin EC [Ecotrin Low Dose] 81 mg PO HS 12/23/17 [History] Cholecalciferol [Vitamin D3] 1,000 unit PO DAILY 12/23/17 [History] Etanercept [Enbrel] 50 mg SQ CARMONA 12/23/17 [History] Leflunomide [Arava] 20 mg PO DAILY 12/23/17 [History] metFORMIN HCL 1,000 mg PO BID 12/23/17 [History] Atorvastatin [Lipitor] 80 mg PO DAILY #80 tab 12/27/17 [Rx] Lisinopril [Zestril] 10 mg PO DAILY #90 tab 12/27/17 [Rx] Metoprolol Tartrate [Lopressor] 25 mg PO BID #180 tab 12/27/17 [Rx] Nitroglycerin Sl Tabs [Nitrostat] 0.4 mg SUBLINGUAL Q5M PRN #25 tab 12/27/17 [Rx ] Prasugrel [Effient] 10 mg PO DAILY #90 tab 12/27/17 [Rx] Follow up Appointment(s)/Referral(s): Sosa Lara MD [STAFF PHYSICIAN] - 01/04/18 3:45 pm Kassie Hogan MD [Primary Care Provider] - 01/02/18 11:00 am Patient Instructions/Handouts: Heart Healthy Diet (DC), Coronary Intravascular Stent Placement (DC), After Radial Heart Catheterization (GEN) Activity/Diet/Wound Care/Special Instructions: Resume metformin in 48 hours. Discharge Disposition: HOME SELF-CARE
== END 2017-12-27 13:18 | disposition home or self-care (01) | DRG 247 ==
LOC: EC 15:50 → 3OBS 16:15 → 6SEL 17:30 → OBSVTOIN 12-24 13:02
PROVIDERS: ADMIT Internal Medicine; ATTEND Internal Medicine
PROC: 027034Z Dilation of Coronary Artery, One Artery with Drug-eluting Intraluminal Device, Percutaneous Approach (ICD-10-PCS; principal; 2017-12-26 07:32)
PROC: B2151ZZ Fluoroscopy of Left Heart using Low Osmolar Contrast (ICD-10-PCS; principal; 2017-12-26 07:32)
PROC: 4A023N7 Measurement of Cardiac Sampling and Pressure, Left Heart, Percutaneous Approach (ICD-10-PCS; principal; 2017-12-26 07:32)
PROC: B2111ZZ Fluoroscopy of Multiple Coronary Arteries using Low Osmolar Contrast (ICD-10-PCS; principal; 2017-12-26 07:32)
DX: I21.4 Non-ST elevation (NSTEMI) myocardial infarction (principal); E11.9 Type 2 diabetes mellitus without complications; E66.9 Obesity, unspecified; Z68.39 Body mass index [BMI] 39.0-39.9, adult; E78.5 Hyperlipidemia, unspecified; I10 Essential (primary) hypertension; I25.110 Atherosclerotic heart disease of native coronary artery with unstable angina pectoris; I45.10 Unspecified right bundle-branch block; M06.9 Rheumatoid arthritis, unspecified; Z79.82 Long term (current) use of aspirin; Z79.899 Other long term (current) drug therapy; Z83.3 Family history of diabetes mellitus; Z87.891 Personal history of nicotine dependence; Z90.710 Acquired absence of both cervix and uterus; Z96.659 Presence of unspecified artificial knee joint; Z82.49 Family history of ischemic heart disease and other diseases of the circulatory system; Z79.84 Long term (current) use of oral hypoglycemic drugs; I95.9 Hypotension, unspecified; I08.1 Rheumatic disorders of both mitral and tricuspid valves; Z88.2 Allergy status to sulfonamides
CPT/HCPCS: 36415; 80048; 80061; 82550; 82553; 83735; 84484; 85025; 85049; 85730; 93005; 93306; 93458; 96365; 96366; 96376; 99285

== ENCOUNTER → 2020-10-24 | Outpatient (CLI) | payer MEDICARE ==
[2020-10-24 15:51] LABS: Albumin 3.7 g/dL (3.80-4.90); Albumin/Globulin Ratio 1.37 (1.60-3.17); Calcium 9.4 mg/dL (8.7-10.3); Chol/HDL Ratio 2.53; Globulin 2.7 g/dL (1.6-3.3); LDL Cholesterol,Calculated 74.2 mg/dL (0.0-131.0); Non-African American GFR(CKD) 71.6 (60.0-200.0); Potassium 4.6 mmol/L (3.5-5.5); Total Bilirubin 0.5 mg/dL (0.2-1.2); Total Protein 6.4 g/dL (6.2-8.2); VLDL Calculation 12.8 mg/dL (5.00-40.00)
== END | disposition home or self-care (01) ==
LOC: LABWHC1 10:48
PROVIDERS: ATTEND Nurse Practitioner Adult Health
DX: I10 Essential (primary) hypertension (principal); E78.2 Mixed hyperlipidemia
CPT/HCPCS: 36415; 80053; 80061

== ENCOUNTER 2024-03-14 06:56 | Day surgery (SDC) | payer MEDICARE ==
[~2024-03-14 06:56] MED LIST: ALPRAZolam 0.25 MG TAB PO PRN; ALPRAZolam 0.5 MG TAB PO PRN; NITROGLYCERIN SL TABS 0.4 MG TAB SUBLINGUAL PRN
[2024-03-14] MEDS: IV FLUID CONTINUATION 1,000 ML IV ONE (07:30)
[2024-03-14 07:42] LABS: Glucose,Whole Blood 99 mg/dL (70-110)
[2024-03-14 08:00] VITALS: RESP 16; TEMP 98.3
[2024-03-14] MEDS: SODIUM CHLORIDE 0.9% 1,000 ML in EMPTY BAG 1 BAG IV SCH (08:11)
[2024-03-14] MEDS: ASPIRIN 325 MG TAB PO ONE (08:11)
[2024-03-14] MEDS: fentaNYL (PF) 50 MCG/ML 2 ML AMP IVP ONE (09:00)
[2024-03-14] MEDS: LIDOCAINE 1% INJ 10MG/ML (20 ML MDV) SQ ONE (09:04)
[2024-03-14] MEDS: VERAPAMIL SYRINGE (5 MG/10 ML) INTRAARTER ONE (09:07)
[2024-03-14] MEDS: HEPARIN SODIUM 1,000 UN/ML (10ML VL) IV ONE (09:15)
[2024-03-14] MEDS: IOPAMIDOL-370 100ML BTL INJ ONE (09:21)
[2024-03-14] MEDS: HEPARIN SODIUM,PORCINE (1 ML) 2,500 UNIT in SODIUM CHLORIDE 0.9% 250 ML IRRIGATION PRN (09:22)
[2024-03-14] MEDS: HEPARIN SODIUM,PORCINE 10,000 UNIT in SODIUM CHLORIDE 0.9% 1,000 ML IRRIGATION PRN (09:22)
[2024-03-14] MEDS ORDERED: RX INFO: IV CONTRAST WAS GIVEN 1 EACH MISC MISCELLANE PRN (09:33)
--- NOTE | 2024-03-14 09:38 | P.CARDCATH ---
Date of Procedure: 03/14/24 Description of Procedure: Cardiac Catheterization: The patient is a 78-year-old female with a known history of CAD who has been complaining of progressive dyspnea. She had an abnormal MPI. She has a prior history of CAD with stenting of the LAD in 2018. Recommendations were made regarding cardiac catheterization, the risks and the complications were discussed with the patient who is in full understanding and agreement. Procedure Description: Patient was brought to laboratory aide in fasting semi-sedated state after receiving Fentanyl and Benadryl achieiving moderate conscious sedated state. Using Xylocaine Anesthesia and modified Seldinger technique, a 6-Croatian sheath was introduced in the right radial artery . Subsequently, selective coronary angiography was performed using a 5-Croatian 3.5 bend Efrain catheter. Multiple views of the coronary artery including hemiaxial views were obtained. The right Efrain catheter was used to cross the aortic valve and LVEDP was calculated. Following that, catheter and sheath were removed. Hemostasis was obtained with deployment of vascular band . There was no immediate complication. Patient was returned to room in stable condition. Of note, the patient received a total of 5000 units of intravenous heparin as well as intra-arterial verapamil. Findings: Left main: This is a large size vessel, bifurcating into LAD and left circumflex, left main has no obstructive disease LAD: This is a large size vessel, giving rise to a large proximal diagonal bra nch. The proximal segment of the LAD has a stent with about 20% in-stent restenosis. The left circumflex is a branching vessel and the inferior branch has a 30% plaque proximally, the rest of the vessel has no high-grade stenosis Left circumflex: This is a nondominant vessel giving rise to 3 obtuse marginal branch, the first 1 is the largest in caliber. The left circumflex and its branches have no obstructive disease RCA: This is a large dominant vessel, bifurcating distally to PDA and PLV. The proximal RCA has 20 to 30% plaque the mid segment is calcified and has a 50% eccentric lesion with no progression compared to 2027, the rest of the vessel has no high-grade stenosis Left Ventriculogram: Not performed Hemodynamics: There was no gradient across aortic valve, LVEDP was 20-24 mmHg Conclusion: 1. Patent stent in the proximal LAD with mild in-stent restenosis 2. Mild to moderate disease in the mid RCA with no progression 3. Right dominance 4. Elevated LVEDP Recommendations: I would recommend to continue medical therapy, I see no progression of disease compared to 2018, we will continue aggressive coronary risks modifications. The findings and the recommendations were discussed with the patient and the family and they were in full understanding and agreement. Duration of sedation is 18 minutes.
[2024-03-14] MEDS ORDERED: SODIUM CHLORIDE 0.9% 1,000 ML IV SCH (09:45)
[2024-03-14 12:54] VITALS: BP 165/95; PULSE 74
[2024-03-15] MEDS ORDERED: ATORVASTATIN 80 MG TAB PO SCH (09:00)
[2024-03-15] MEDS ORDERED: lisinopriL 10 MG TAB PO SCH (09:00)
[2024-03-15] MEDS ORDERED: ASPIRIN 81 MG PO SCH (21:00)
== END 2024-03-14 13:33 | disposition home or self-care (01) ==
LOC: CATHCVL 06:56
PROVIDERS: ATTEND Internal Medicine Interventional Cardiology
DX: T82.855A Stenosis of coronary artery stent, initial encounter (principal); I25.10 Atherosclerotic heart disease of native coronary artery without angina pectoris; E78.5 Hyperlipidemia, unspecified; I10 Essential (primary) hypertension; E11.9 Type 2 diabetes mellitus without complications; I34.0 Nonrheumatic mitral (valve) insufficiency; Z88.2 Allergy status to sulfonamides; Z87.891 Personal history of nicotine dependence; Z79.84 Long term (current) use of oral hypoglycemic drugs; Z79.899 Other long term (current) drug therapy; Z79.82 Long term (current) use of aspirin; Y83.8 Other surgical procedures as the cause of abnormal reaction of the patient, or of later complication, without mention of misadventure at the time of the procedure
CPT/HCPCS: 93458